=== PATIENT | female | born 1990 | race Caucasian/White ===

== ENCOUNTER → 2017-12-20 15:52 | Outpatient (CLI) | payer BC, SELFPAY ==
[2017-12-20 15:55] LABS: Microscopic, Urine URINE MICROSCOPIC (MICROSCOPIC)
[2017-12-20 16:20] LABS: Appearance,Urine SL CLOUDY (Clear); Bilirubin,Urine Negative (Negative); Blood, Urine Negative (Negative); Color,Urine YELLOW (Yellow); Glucose,Urine (UA) Negative (Negative); Ketones,Urine Negative (Negative); Leukocyte Esterase,Urine Negative (Negative); Nitrate,Urine Negative (Negative); Protein,Urine Negative (Negative); Urine Pregnancy, HCG Qual. Negative (Negative); Urobilinogen,Urine 0.2 EU/dl (0.2)
[2017-12-20 16:23] LABS: Basophils # 0.1 K/mm3 (0-0.2); Basophils % 0.5 % (0.1-2.0); Eosinophils # 0.4 K/mm3 (0.0-0.4); Eosinophils % 3.8 % (0.1-12.0); Hematocrit 46.6 % (37.0-47.0); Hemoglobin 15.6 g/dL (12.2-16.2); Lymphocytes # 2.8 K/mm3 (0.7-4.5); Lymphocytes % 28.5 K/mm3 (10-50); Mean Corpuscular HGB Conc 33.5 g/dL (31.8-35.4); Mean Corpuscular Hemoglobin 30.9 pg (27.0-31.2); Mean Corpuscular Volume 92.2 fl (81-99); Mean Platelet Volume 8.9 fl (7.4-10.4); Monocytes # 0.4 K/mm3 (0.1-1.0); Monocytes % 3.8 % (1.7-9.3); Neutrophils # 6.3 K/mm3 (1.8-7.8); Neutrophils % 63.4 % (37.0-80.0); Platelet Count 292 K/mm3 (142-424); Red Blood Count 5.06 M/mm3 (4.20-5.40); Red Cell Distribution Width 12.8 % (11.5-17.5); White Blood Count 9.9 K/mm3 (4.8-10.8)
[2017-12-20 16:48] LABS: Amorphous Sediment,Urine 3+ /lpf; Bacteria,Urine 1+ /lpf; Hyaline Casts,Urine Occasional #/lpf (0); WBC,Urine Occasional #/hpf (0-3)
[2017-12-20 17:54] LABS: Alanine Aminotransferase 20 U/L (12-78); Albumin/Globulin Ratio 1.2 (1.1-1.8); Alkaline Phosphatase 65 U/L (46-116); Aspartate Amino Transferase 15 U/L (15-37); Bilirubin,Total 0.2 mg/dL (0.2-1.0); Blood Urea Nitrogen 11 mg/dL (7-18); Calcium 9.5 mg/dL (8.5-10.1); Carbon Dioxide 30 mmol/L (21.0-32.0); Chloride 104 mmol/L (98-107); Creatinine,Serum 0.64 mg/dL (0.55-1.02); Estimated Glomerular Filt Rate 111 ml/min (>60); GFR (African American) 135 ML/MIN (>60); Globulin 3.3 gm/dl (1.3-3.2); Glucose 83 mg/dL (74-106); Sodium 140 mmol/L (136-145); Total Protein,Serum 7.3 gm/dL (6.4-8.2)
== END ==
PROVIDERS: Visit Provider Obstetrics & Gynecology
DX: Z01.818 Encounter for other preprocedural examination (principal); Z30.2 Encounter for sterilization
CPT/HCPCS: 36415; 80053; 81001; 81025; 85025

== ENCOUNTER 2017-12-26 06:13 | Day surgery (SDC) | payer BC, SELFPAY ==
[2017-12-23 13:03] VITALS: BMI 31.8
[2017-12-26] VITALS (13 sets, daily range): BP systolic 86–113; BP diastolic 52–82; PULSE 51–77; RESP 16–22; TEMP 36.2–43; O2SAT 97–99
--- NOTE | 2017-12-26 06:40 | P.PN_ITS ---
[facility] Anesthesia Checklist - Patient Identification Patient Identification: Arm Band - Structural Data Admitted From: Home Consent for Planned Operative Procedure(s) Verified: Yes Verified Documents: Surgical Consent, History and Physical - NPO Status Verified Time NPO: 00:00 - Additional verifications Patient : No Anesthesia Reactions: No - Airway Assessment C-Spine Mobility Assessed: Yes TMJ Mobility Assessed: Yes Dentition: Good Dentition - Neurological Assessment Level of Consciousness: Awake Hx Seizures: No Numbness or tingling in extremities: No - Anesthesia Plan Anesthesia Risk discussed: Yes Anesthesia Plan: Verified ASA Class: II Anesthesia Type: General [facility] Anesthesia HX I have reviewed the patient's past medical history: Yes Medical History: Reports:: Anxiety, Asthma, Gastroesophageal Reflux Disease(GERD ) Denies:: Cancer, Diabetes Mellitus Type 1, MRSA Comment: Positive smoker Other Surgeries: Yes: No Previous Surgery Amputation: No Fractures: No *Family Hx:: Cancer, Hypertension, Diabetes, Stroke
--- NOTE | 2017-12-26 07:48 | P.OP_ITS ---
Date of procedure: 12/26/17 Pre-op Diagnosis:: Desire for sterilization Post-op Diagnosis:: Desire for sterilization Procedure performed:: Laparoscopic bilateral tubal fulguration Surgeon:: Robert Bolton MD REHABILITATION SPECIALIST:: Jorge Alberto Gibson Anesthesia: JESSICA Estimated blood loss (mL): 10 Operative findings:: Normal pelvis Operative note:: After the patient was prepped and draped in usual fashion and general anesthesia was administered, examined normal-sized uterus, with no adnexal masses. A weighted speculum was placed within the posterior fourchette of the vagina, and the anterior lip of the cervix was grasped with a single-tooth tenaculum. The uterus was sounded in a retroverted direction to centimeters, and easily dilated to #20 Hegar dilators. A HUMI uterine elevator was inserted in the cervix, and the bulb inflated for easy uterine manipulation during the laparoscopy. After appropriate regloving, the skin on either side of the umbilicus was tented up with towel clips. A small incision was made in the base of the umbilicus with a knife, and a Veress needle was inserted into the abdominal cavity. After demonstration of negative pressure, an adequate pneumoperitoneum was created with carbon dioxide gas. The Veress needle was then replaced with a trocar and cannula, and the trocar placed with the laparoscope. The uterus was of normal size and configuration. Each tube was followed out to its fimbriated end, which appeared free. Each ovary also appeared normal. The upper abdomen was explored. The liver and spleen edges and gallbladder were visualized and felt to be normal. The appendix was not visualized. Returning to the pelvis, first the left tube and then the right was grasped in its midsection and fulgurated until the tissue blanched. Each tube was then fulgurated twice more medially. There was no undue bleeding. There was no pathology noted. The pneumoperitoneum was reduced, and the instruments were removed under direct visualization. The skin incision was infused with a dilute solution of Marcaine, as a local anesthetic, and closed with a subcuticular suture of 3-0 Vicryl. The wound was appropriately dressed. The HUMI was deflated and removed. The sponge and needle counts correct. The estimated blood loss was less than 10 cc. The patient tolerated the procedure well, and was taken to PACU in excellent condition. She will be discharged today, if her vital signs are stable. Condition: stable Disposition: same day Specimens:: None Complications:: None
--- NOTE | 2017-12-26 07:57 | P.PN_ITS ---
[facility] Anesthesia Record Part I Intake, IV Amount: 700 Estimated blood loss (mL): 10 Urine output (mL): 50 Blood Products used (#): none Blood Pressure: 110/82 SaO2: 97 Pulse Rate: 66 Respiratory Rate: 20 Temperature: 98.2 F Patient is:: Drowsy, Stable Stable to PACU at:: 07:56
--- NOTE | 2017-12-26 07:57 | HMH.ANESII ---
[facility] Anesthesia Record Part II Discharge Time: 08:26 Destination: Surgical Day Care (OP Surgery) PACU nurse assessment reviewed?: Yes Patient Condition:: Good Anesthesia Complications:: None
[2017-12-26 09:18] LABS: Hematocrit 40.9 % (37.0-47.0); Hemoglobin 13.4 g/dL (12.2-16.2)
== END 2017-12-26 09:50 | disposition home or self-care (01) ==
PROVIDERS: Family Provider Pediatrics; PCP Pediatrics; Visit Provider Obstetrics & Gynecology
PROC: 0UL74ZZ Occlusion of Bilateral Fallopian Tubes, Percutaneous Endoscopic Approach (ICD-10-PCS; CPT 58670; principal; 2017-12-26 07:30)
DX: Z30.2 Encounter for sterilization (principal)
CPT/HCPCS: 58670; 36415; 85014; 85018; 96372; 96374; J0131; J2405

== ENCOUNTER → 2018-07-10 11:15 | Outpatient (CLI) | payer BC, SELFPAY ==
[2018-07-10 14:12] LABS: Anion Gap 9.6 mEq/L (5-15); Blood Urea Nitrogen 10 mg/dL (7-18); Carbon Dioxide 30 mmol/L (21.0-32.0); Chloride 107 mmol/L (98-107); Creatinine,Serum 0.68 mg/dL (0.55-1.02); Estimated Glomerular Filt Rate 103 ml/min (>60); GFR (African American) 125 ML/MIN (>60); Glucose 64 mg/dL (74-106); Potassium 4.6 mmoL/L (3.5-5.1); Sodium 142 mmol/L (136-145)
== END ==
PROVIDERS: PCP Pediatrics; Visit Provider Specialist
DX: G93.0 Cerebral cysts (principal); R51 Headache; R93.8 Abnormal findings on diagnostic imaging of other specified body structures
CPT/HCPCS: 36415; 80048

== ENCOUNTER → 2018-07-13 08:32 | Outpatient (CLI) | payer BC, SELFPAY ==
--- NOTE | 2018-07-13 08:34 | MR_ITS ---
MR head/brain wo/w con HISTORY: Severe headache with dizziness and nausea with abnormal head CT, vision loss, headaches and syncope ITS.REASON: abnormal ct scan headache ORDERING PHYSICIAN: Isatu Briscoe MD PATIENT AGE: 28 years Comparison: 05/06/2019 TECHNIQUE: Standard multiplanar multiecho sequences are performed without and with gadolinium enhancement. FINDINGS: There is an extra-axial collection in the right posterior cranial fossa which is situated anterior to the right cerebellar hemisphere and lateral to the alba as noted on the CT scan. This measures 1.5 x 2 cm AP and transverse and 2.4 cm cephalad to caudad. This demonstrates CSF signal intensity on all imaging sequences and does not demonstrate contrast enhancement or restricted diffusion. This is consistent with an arachnoid cyst. This is causing some mild compression upon the adjacent cerebellum and cerebellar acute uncal. There is very mild midline shift to the left approximately 4 mm. The mid aspect of the fourth ventricle appears to be to the left of midline by approximately 4 mm. There is no surrounding edema of the adjacent structures. The extracanalicular portion of the right nerve VII and VIII is somewhat bowed anteriorly by the cyst. The cyst epicenter is just posterior to the CP angle. This lesion does not show any enhancement. No acute infarction, hydrocephalus, or intracranial hemorrhage is evident. No abnormal enhancement is apparent. There is normal watson-white matter differentiation. The pituitary and optic chiasm are unremarkable. No large aneurysms evident. IMPRESSION: 1. Right posterior fossa/cerebellopontine angle arachnoid cyst as described above 2. Otherwise negative MRI of the brain without and with contrast
== END ==
PROVIDERS: Family Provider Pediatrics; PCP Pediatrics; Visit Provider Specialist
DX: G93.0 Cerebral cysts (principal); R51 Headache; R93.8 Abnormal findings on diagnostic imaging of other specified body structures
CPT/HCPCS: 70553; A9576

== ENCOUNTER 2020-05-27 22:29 | Emergency (ER) | payer BC, SELFPAY ==
[2020-05-27 22:30] VITALS: BP 116/87; BP 119/81; PULSE 82; PULSE 88; RESP 15; RESP 16; TEMP 36.7; O2SAT 99; BMI 36.8
--- NOTE | 2020-05-27 22:39 | XR_ITS ---
PROCEDURE: XR CHEST 2V CLINICAL HISTORY: chest pain Chest pain and smoker COMPARISON: CR CXR CHEST(2 VIEWS-NOT PORTABLE) from 04/21/2016 CR CXR CHEST(2 VIEWS-NOT PORTABLE) from 08/23/2017 CR CXR2V XR chest 2V from 04/27/2018 FINDINGS: The cardiomediastinal silhouette and pulmonary vascularity are within normal limits. The lungs are clear without infiltrates, suspicious nodules, or pleural effusions. No acute bony abnormalities. IMPRESSION: No acute findings. Dictated by: Jose Scherer MD 05/28/2020 06:41 Jose Scherer MD in [place] 05/28/2020 06:41
--- NOTE | 2020-05-27 22:39 | ECG_ITS ---
APPROVED REPORT Exam: Resting ECG HR:80 bpm ECG Measurements Heart Rate 80 AXES [place] 148 P 63 QRSd 112 QRS 60 QT 374 T 40 QTc 431 <Conclusion> Normal sinus rhythm Incomplete right bundle branch block Borderline ECG Electronically signed by : Flaco Riley, 05/28/2020 11:59:43
[2020-05-27 22:47] LABS: Basophils # 0.1 K/mm3 (0-0.2); Basophils % 0.9 % (0.1-2.0); Eosinophils # 0.5 K/mm3 (0.0-0.4); Eosinophils % 4.4 % (0.1-12.0); Hematocrit 44.5 % (37.0-47.0); Hemoglobin 15.1 g/dL (12.2-16.2); Lymphocytes # 3.5 K/mm3 (0.7-4.5); Lymphocytes % 34.7 % (10-50); Mean Corpuscular HGB Conc 33.9 g/dL (31.8-35.4); Mean Corpuscular Hemoglobin 31.8 pg (27.0-31.2); Mean Corpuscular Volume 93.8 fl (81-99); Mean Platelet Volume 8.9 fl (7.4-10.4); Monocytes # 0.4 K/mm3 (0.1-1.0); Monocytes % 3.7 % (1.7-9.3); Neutrophils # 5.8 K/mm3 (1.8-7.8); Neutrophils % 56.4 % (37.0-80.0); Platelet Count 238 K/mm3 (142-424); Red Blood Count 4.75 M/mm3 (4.20-5.40); Red Cell Distribution Width 13.4 % (11.5-17.5); White Blood Count 10.2 K/mm3 (4.8-10.8)
[2020-05-27 22:58] LABS: Chloride 107 mmol/L (98-107)
[2020-05-27 22:59] LABS: Potassium 3.9 mmoL/L (3.5-5.1); Sodium 139 mmol/L (136-145)
[2020-05-27 23:00] VITALS: BP 125/85; PULSE 84; RESP 17; O2SAT 98
[2020-05-27 23:02] LABS: Anion Gap 10.9 mEq/L (5-15); Blood Urea Nitrogen 15 mg/dl (7-17); Calcium 9.4 mg/dl (8.4-10.2); Carbon Dioxide 25 mmol/L (22.0-30.0); Creatinine Clearance Estimated 198 mL/min (50-200); Estimated Glomerular Filt Rate 98 ml/min (>60); GFR (African American) 119 ML/MIN (>60); Glucose 108 mg/dl (74-100)
[2020-05-27 23:16] LABS: Troponin I < 0.01 ng/ml (0.00-0.034)
[2020-05-27 23:28] LABS: Microscopic, Urine URINE MICROSCOPIC (MICROSCOPIC)
[2020-05-27 23:30] VITALS: BP 121/79; PULSE 84; RESP 17; O2SAT 99
--- NOTE | 2020-05-27 23:30 | HMH.EDCP ---
ED Disposition Clinical Impression: Anxiety attack Chest pain Qualifiers: Chest pain type: other chest pain Qualified Code(s): R07.89 - Other chest pain Disposition: Home, Self-Care Condition on Discharge: Good Instructions: DI for Atypical Chest Pain Additional Instructions: Follow up with PCP. Advised to return to ED if your symptoms worsen or you start having difficulty breathing. Referrals: Navneet Cuenca [Primary Care Provider] - Forms: Work/School Release - Critical Care Critical Care Time: No Attestation: On 05/27/20, the high probability of a clinically significant, sudden or life threatening deterioration of the following system(s) required my full and direct attention, intervention and personal management. The time I documented below is in addition to time spent performing reported procedures but includes the following listed in this critical care notation. Medical Decision Making - Medical Records Medical records reviewed: Yes: I reviewed the patient's medical records. - Suraj Inquiry Pt receiving controlled substance: No Vital Signs: 05/27/20 22:30 05/27/20 23:00 05/27/20 23:30 Temperature 98.1 F Temperature Source Oral Pulse Rate Pulse Rate [Right] 88 84 84 Respiratory Rate 15 17 17 Blood Pressure Blood Pressure [Right Arm] 119/81 125/85 121/79 Blood Pressure Mean [Right Arm] 93 98 93 Blood Pressure Source [Right Arm] Automatic Cuff Automatic Cuff Automatic Cuff Blood Pressure Position [Right Arm] Supine Supine 02 Sat by Pulse Oximetry 99 98 99 Oxygen Delivery Method Room Air Room Air Room Air 05/27/20 23:55 Temperature 98.1 F Temperature Source Pulse Rate 82 Pulse Rate [Right] Respiratory Rate 14 Blood Pressure 124/78 Blood Pressure [Right Arm] Blood Pressure Mean [Right Arm] Blood Pressure Source [Right Arm] Blood Pressure Position [Right Arm] 02 Sat by Pulse Oximetry Oxygen Delivery Method Room Air - Lab Data Lab Results 05/27/20 22:30: Urine Color Yellow, Urine Appearance Clear, Urine pH 5.5, Ur Specific Dunn >= 1.030, Urine Protein Negative, Urine Glucose (UA) Negative, Urine Ketones Negative, Urine Blood Trace-l, Urine Nitrate Negative, Urine Bilirubin Negative, Urine Urobilinogen 0.2, Ur Leukocyte Esterase Negative, Urine WBC 3-5, Ur Squamous Epith Cells 5-10, Urine Bacteria 2+ 05/27/20 22:30: Urine HCG, Qual Negative 05/27/20 22:35: WBC 10.2, RBC 4.75, Hgb 15.1, Hct 44.5, MCV 93.8, MCH 31.8 H, MCHC 33.9, RDW 13.4, Plt Count 238, MPV 8.9, Neut % (Auto) 56.4, Lymph % (Auto) 34.7, Lynn % (Auto) 3.7, Eos % (Auto) 4.4, Baso % (Auto) 0.9, Neut # (Auto) 5.8, Lymph # (Auto) 3.5, Lynn # (Auto) 0.4, Eos # (Auto) 0.5 H, Baso # (Auto) 0.1 05/27/20 22:35: Sodium 139, Potassium 3.9, Chloride 107, Carbon Dioxide 25, Anion Gap 10.9, BUN 15, Creatinine 0.70, Estimated Creat Clear 198, Estimated GFR 98, Est GFR ( Amer) 119, Glucose 108 H, Calcium 9.4, Troponin I < 0.01 Result diagrams: 05/27/20 22:35 05/27/20 22:35 Orders (Tests/Meds): ED MEDICATIONS Discontinued Medications Generic Name Dose Route Start Last Admin Trade Name Freq PRN Reason Stop Dose Admin Aspirin 324 mg 05/27/20 22:39 05/27/20 22:45 Aspirin 81mg Chewable Tablet PO 05/27/20 22:40 324 mg ONCE ONE Administration ORDERS Category Date Time Status XR chest 2V Stat Exams 05/27/20 22:39 Taken Urine Culture Stat Micro 05/27/20 22:30 Received - CHAS Score for Non-Stemi Age of Patient: 30-39 years old Heart Rate: 70-89 bpm Systolic Blood Pressure: 100-119 mmHg Serum Creatinine: 0.40-0.79 mg/dl CHF Killip Class: I-No CHF Other Risk Factors: None Non-Stemi Risk Score: 64 Risk Stratification: 1-108 = Low Risk Medical Decision Narrative: 30-year-old female comes into the emergency department for evaluation of chest pain/tightness. Symptoms started approximately 4 hours prior to arrival. Hemodynamically stable nontoxic in appearance upon arrival. Differenti
[2020-05-27 23:40] LABS: Urine Pregnancy, HCG Qual. Negative (Negative)
[2020-05-27 23:43] LABS: Appearance,Urine CLEAR (Clear); Bilirubin,Urine Negative (Negative); Blood, Urine TRACE-L (Negative); Color,Urine YELLOW (Yellow); Glucose,Urine (UA) Negative (Negative); Ketones,Urine Negative (Negative); Leukocyte Esterase,Urine Negative (Negative); Nitrate,Urine Negative (Negative); PH,Urine 5.5 (5.0-8.5); Protein,Urine Negative (Negative); Specific Gravity, Urine >= 1.030 (1.005-1.030); Urobilinogen,Urine 0.2 EU/dl (0.2)
[2020-05-27 23:52] LABS: Bacteria,Urine 2+ /lpf
[2020-05-27 23:55] VITALS: BP 124/78; PULSE 82; RESP 14; TEMP 36.7; O2SAT 99
== END 2020-05-27 23:56 | disposition home or self-care (01) ==
PROVIDERS: Emergency Provider Emergency Medicine; PCP Pediatrics
DX: F41.0 Panic disorder [episodic paroxysmal anxiety] (principal); R07.89 Other chest pain; K21.9 Gastro-esophageal reflux disease without esophagitis; G43.709 Chronic migraine without aura, not intractable, without status migrainosus; J45.909 Unspecified asthma, uncomplicated; Z88.5 Allergy status to narcotic agent; F17.210 Nicotine dependence, cigarettes, uncomplicated
CPT/HCPCS: 71046; 80048; 81001; 81025; 84484; 85025; 87086; 93005; 99283

== ENCOUNTER → 2020-10-24 14:35 | Outpatient (CLI) | payer BC, SELFPAY ==
--- NOTE | 2020-10-24 14:35 | MR_ITS ---
PROCEDURE: MR HEAD/BRAIN WO/W CON CLINICAL INDICATION: eval arachnoid cyst headaches, dizziness, black out spells, eval arachnoid cyst. COMPARISON: MR BRAINWW MR head/brain wo/w con from 07/13/2018 TECHNIQUE: Routine multiplanar multi echo sequences are performed without gadolinium enhancement. FINDINGS: No evidence of acute infarction. No hydrocephalus. Prominent extra-axial CSF signal intensity is present anterior to the right cerebellar hemisphere and in the right CP angle. This measures 4.4 by 2 cm and is similar to the previous exam of 07/13/2018. This lesion does not demonstrate contrast enhancement and is consistent with an arachnoid cyst of the right posterior fossa and CP angle. As mentioned previously this is causing some mass effect upon the adjacent cerebellum and cerebellopontine angle with minimal midline shift of the cerebellum to the left not significantly changed. No abnormal white matter signal intensity. There is a partial empty sella. The optic chiasm, corpus callosum, hippocampal gyri, and basal ganglia have an unremarkable appearance. There is a 2.7 cm retention cyst in the floor the left maxillary sinus. IMPRESSION: 1. Overall no change in the right posterior fossa arachnoid cyst. There is mild mass effect upon the adjacent cerebellum and alba with some bowing of the 7th and 8th nerve complex anteriorly. This is not significantly changed. There is minimal midline shift to the left of the 4th ventricle by 3-4 mm. This is unchanged. 2. No acute finding. Dictated by: Jose Scherer MD 10/25/2020 07:29 Jose Scherer MD in [place] 10/25/2020 07:29
== END ==
PROVIDERS: PCP Pediatrics; Visit Provider Nurse Practitioner Family
DX: G93.0 Cerebral cysts (principal); G43.019 Migraine without aura, intractable, without status migrainosus
CPT/HCPCS: 70553; A9576

== ENCOUNTER 2021-12-06 14:52 | Emergency (ER) | payer BC, SELFPAY ==
--- NOTE | 2021-12-06 15:27 | XR_ITS ---
PROCEDURE INFORMATION: Exam: XR Left Ankle Exam date and time: 12/06/2021 3:27 PM Age: 31 years old Clinical indication: Injury or trauma; Fall; Blunt trauma and swelling (edema); Ankle; Left; Injury date: 12/05/21 TECHNIQUE: Imaging protocol: XR Left ankle. Views: 3 or more views. COMPARISON: No relevant prior studies available. FINDINGS: Bones/joints: There is widening of the space between the distal tibia and fibula, with resultant decrease in the tibiofibular overlap. Mild diffuse soft tissue swelling is demonstrated at the level of the ankle joint. No fracture is demonstrated. Soft tissues: Soft tissue swelling. IMPRESSION: 1. Findings suspicious for possible syndesmotic injury. 2. Recommendations: Follow-up with magnetic resonance imaging for further evaluation of possible syndesmotic injury.
[2021-12-06 15:28] VITALS: BP 106/66; PULSE 75; RESP 18; TEMP 36.9; O2SAT 98; BMI 42.3
--- NOTE | 2021-12-06 16:35 | HMH.EDUTC ---
[facility] [place] Clinical Impression: Ankle sprain Qualifiers: Encounter type: initial encounter Involved ligament of ankle: other ligament Laterality: left Qualified Code(s): S93.492A - Sprain of other ligament of left ankle, initial encounter Disposition: Home, Self-Care Condition on Discharge: Good Instructions: How to Use Crutches, How To Perform RICE (Rest, Ice, Compress, Elevate), How to Use a Walking Boot Additional Instructions: *RICE, Rest the extremity, Ice 15-20 minutes 3-4 times daily, Compress- wear the william wrap as discussed as much as possible to help reduce swelling and pain, Elevate the extremity when at rest *Walking boot is for support and help control swelling, Be sure that is not to tight but not to loose either use crutches to ambulate and move around *Elevate when resting *Ibuprofen as directed on package every 6-8 hours as needed for pain an inflammation. If need something more can take Tylenol in between doses of Ibuprofen to help Immediately follow up with your family doctor for new or worsening of symptoms, or no noticeable improvement over the next 3-5 days Call and follow up with Podiatry or Orthopedics for further evaluation and treatment Return if needed Follow up with your Family Doctor Straight to ER if any life threatening symptoms Referrals: Navneet Cuecna [Primary Care Provider] - As needed Mayra Walters DPM [Staff Physician] - Katina Castellon APRN [Nurse Practitioner] - Forms: Work/School Release Time of Disposition: 16:42 Medical Decision Making - Suraj Inquiry Pt receiving controlled substance: No Suraj was queried for this patient: No Vital Signs: 12/06/21 15:28 Temperature 98.4 F Temperature Source Oral Pulse Rate [Left] 75 Respiratory Rate 18 Blood Pressure [Right Arm] 106/66 L Blood Pressure Mean [Right Arm] 79 02 Sat by Pulse Oximetry 98 Orders (Tests/Meds): ORDERS Category Date Time Status Ankle XR - Left minimum 3 Views [XR ankle LT min 3V] Exams 12/06/21 15:27 Taken Stat - Radiology Data #1 Image(s): Ankle Image Reviewed: Yes I have reviewed radiologist's interpretation IMPRESSION: 1. Findings suspicious for possible syndesmotic injury. 2. Recommendations: Follow-up with magnetic resonance imaging for further evaluation of possible syndesmotic injury. [facility] [place] - General Stated complaint: AO 12/05 lt ankle pain Time Seen by Provider: 12/06/21 16:35 Mode of Arrival: Ambulatory Source of Information: Patient Limitations: No Limitations Description of Symptoms (Recalled from Triage Doc. by RN): pt states she fell on ice last night and injured her L ankle. HEENT Symptoms (Recalled from RN notes): No Resp Symptoms (Recalled from RN notes): No Skin Symptoms (Recalled from RN notes): No MS Symptoms (Recalled from RN notes): Yes Functional Status (Recalled from RN notes): wnl - History of Present Illness Provider Complaint: Patient states that she slipped and fell last night on ice and twisted her left ankle State that ever since she has been having pain when she moves it or tries to walk on it State that today it was still hurting and she was unable to go to work so she came in to get it checked out - Related Data Home Medications Medication Instructions Recorded Confirmed albuterol sulfate 90 mcg/actuation INHALATION 06/12/20 06/04/21 aerosol inhaler metronidazole 500 mg tablet 500 mg PO BID 06/04/21 06/04/21 Allergies Allergy/AdvReac Type Severity Reaction Status Date / Time acetaminophen [From Lortab] AdvReac Unknown Rash Verified 06/04/21 13:00 hydrocodone [From Lortab] AdvReac Unknown Rash Verified 06/04/21 13:00 - Worker's Comp Is this a Worker's Comp case?: No [facility] History - Hepatitis A Screen Drug use history?: No High risk sexual behaviors?: No History of sexually transmitted infection?: No Currently employed?: No Childcare worker?: No Do you have indoor plumbing?: Yes Do you have electricity?: Yes
[2021-12-06 16:58] VITALS: BP 106/66; PULSE 75; RESP 18; TEMP 36.9
== END 2021-12-06 16:59 | disposition home or self-care (01) ==
PROVIDERS: Emergency Provider Nurse Practitioner; PCP Pediatrics
DX: S93.492A Sprain of other ligament of left ankle, initial encounter (principal); W00.0XXA Fall on same level due to ice and snow, initial encounter; Y92.89 Other specified places as the place of occurrence of the external cause; F17.210 Nicotine dependence, cigarettes, uncomplicated; K21.9 Gastro-esophageal reflux disease without esophagitis; F41.9 Anxiety disorder, unspecified
CPT/HCPCS: 29515; 73610; 99212; G0463

== ENCOUNTER 2023-02-12 09:15 | Emergency (ER) | payer BC, SELFPAY ==
[2023-02-12 09:17] VITALS: BP 125/81; PULSE 99; RESP 18; TEMP 36.9; O2SAT 97; BMI 33.5
--- NOTE | 2023-02-12 09:24 | PC.NURSE ---
DR EDDY AT BEDSIDE
--- NOTE | 2023-02-12 09:32 | HMH.EDGENADL ---
Discharge Plan Disposition Patient Disposition: Home, Self-Care Condition: Good Chief Complaint: Ear Prescriptions Prescriptions: No Action metronidazole [Flagyl] 500 mg tablet 500 mg PO BID albuterol sulfate 90 mcg/actuation HFA aerosol inhaler INHALATION Referrals Follow up/Referrals: Navneet Cuenca [Primary Care Provider] - See instructions Clinical Impressions Clinical Impression: Abrasion of ear canal, Overuse injury Discharge ED Provider: Damian Hutchinson General Adult HPI General Chief complaint: Ear Stated complaint: Knot inside L ear, R middle finger, no accident Time Seen by Provider: 02/12/23 09:20 Mode of Arrival: Ambulatory Limitations: No Limitations Description of Symptoms (Recalled from ER Triage Doc. by RN): PT REPORTS PAIN TO LEFT EAR KNOT INSIDE X 1 MONTH. C/O PAIN TO MIDDLE KNUCLE ON RIGHT HAND X 2 WEEKS. NO INJURY History of Present Illness HPI narrative: 32yo F presents to the ER for pain inside her left ear for 1 year. Also complains of pain in her right middle finger x1 to 2 weeks. Denies any specific injury. 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 States her finger hurts worse when using a hammer. Denies any specific injury or trauma. [id number] Related Data Home Medications Medication Instructions Recorded Confirmed albuterol sulfate 90 mcg/actuation inhalation 06/12/20 06/04/21 aerosol inhaler metronidazole 500 mg tablet 500 mg PO BID 06/04/21 06/04/21 (Flagyl) Allergies Allergy/AdvReac Type Severity Reaction Status Date / Time acetaminophen [From Lortab] AdvReac Unknown Rash Verified 06/04/21 13:00 hydrocodone [From Lortab] AdvReac Unknown Rash Verified 06/04/21 13:00 [facility] Disclaimer: The information contained in this section may have been updated after the patient was seen, as this information can be updated by other users. Social History Smoking Status: Current every day smoker tobacco type: cigarettes packs per day: 1 alcohol intake: never substance use type: denies use current occupational status: employed Travel in the last 8 weeks: None household members: children housing: house current occupation: [employer] ROS Obtained: Yes Systems reviewed as appropriate & no additional complaints except as documented Physical Exam General General appearance: alert and in no apparent distress Head Head exam: atraumatic Eye Eye exam: Present normal appearance ENT ENT exam: Present normal exam and other (L ear: No otitis externa, normal EAC, normal TM. Scab to ear canal meatus without surrounding erythema, drainage) Expanded ENT Exam External ear exam: Present normal external inspection Neck Neck exam: Present normal inspection and full ROM Respiratory Respiratory exam: Absent respiratory distress Cardiovascular Cardiovascular exam: Present regular rate Neurological Exam Neurological exam: Present alert, oriented X3 and CN II-XII intact Psychiatric Psychiatric exam: Present normal affect Skin Skin exam: Present warm and dry Medical Decision Making Medical Records Medical records reviewed: Yes I reviewed the patient's medical records. Suraj Inquiry Pt receiving controlled substance: No Vital Signs: 02/12/23 09:17 Temperature 98.4 F Temperature Source Oral Pulse Rate [Radial] 99 H Respiratory Rate 18 Blood Pressure [Left Arm] 125/81 Blood Pressure Mean [Left Arm] 95 Blood Pressure Source [Left Arm] Automatic Cuff Blood Pressure Position [Left Arm] Sitting 02 Sat by Pulse Oximetry 97 Oxygen Delivery Method Room Air Medical Decision Narrative: 32yo F evaluated for 1 year of left heel pain and 1 to 2 weeks of right middle finger pain. No trauma. Physical exam unremarkable except for a small scab the patient has been picking at her ear. Believe the patient would benefit from not wearing earplugs and from crosstraining. Discus
[2023-02-12 09:40] VITALS: BP 122/69; PULSE 92; RESP 17; TEMP 36.9; O2SAT 98
== END 2023-02-12 09:42 | disposition home or self-care (01) ==
PROVIDERS: Emergency Provider Family Medicine; PCP Pediatrics
DX: S00.412A Abrasion of left ear, initial encounter (principal); M79.641 Pain in right hand; X58.XXXA Exposure to other specified factors, initial encounter; F17.210 Nicotine dependence, cigarettes, uncomplicated
CPT/HCPCS: 99282; 99283

== ENCOUNTER 2023-09-15 09:23 | Emergency (ER) | payer OTHER, SELFPAY ==
--- NOTE | 2023-09-15 10:06 | EXP.UTC ---
Discharge Plan Disposition Patient Disposition: Home, Self-Care Condition: Good Prescriptions Prescriptions: New ibuprofen [IBU] 800 mg tablet 800 mg PO Q8HP PRN (Reason: Moderate Pain) Qty: 30 0RF No Action metronidazole [Flagyl] 500 mg tablet 500 mg PO BID albuterol sulfate 90 mcg/actuation HFA aerosol inhaler INHALATION Referrals Follow up/Referrals: Navneet Cuenca [Primary Care Provider] - See instructions Iron Becerra DO [Staff Physician] - See instructions Activity Restrictions/Add. Instructions Additional Instructions/Restrictions: Rest the extremity, apply ice for 15 minutes as tolerated three or four times per day, Wear the william wrap for compression, Elevate the extremity as tolerated while you are resting. Wear the sling to rest your elbow for the next few days. Take ibuprofen for pain. I sent in a prescription to your pharmacy. Follow up with Dr. Becerra (orthopedics). I put in a referral but you need to call his office and schedule an appointment. Follow up with your regular doctor. 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 Since then she has had left elbow pain that is worse when she bends or moves her elbow. She denies any other injury. She denies any back or neck pain. Related Data Home Medications Medication Instructions Recorded Confirmed albuterol sulfate 90 mcg/actuation inhalation 06/12/20 06/04/21 aerosol inhaler metronidazole 500 mg tablet 500 mg PO BID 06/04/21 06/04/21 (Flagyl) Previous Rx's Medication Instructions Recorded ibuprofen 800 mg tablet (IBU) 800 mg PO Q8HP PRN Moderate Pain 09/15/23 #30 tabs Allergies Allergy/AdvReac Type Severity Reaction Status Date / Time acetaminophen [From Lortab] AdvReac Unknown Rash Verified 06/04/21 13:00 hydrocodone [From Lortab] AdvReac Unknown Rash Verified 06/04/21 13:00 [facility] Disclaimer: The information contained in this section may have been updated after the patient was seen, as this information can be updated by other users. Social History Smoking Status: Current every day smoker tobacco type: cigarettes packs per day: 1 alcohol intake: never substance use type: denies use current occupational status: employed Travel in the last 8 weeks: None household members: children housing: house current occupation: [employer] Obtained: Yes All systems reviewed & no additional complaints except as documented Constitutional Constitutional: Denies chills and Denies fever(s) Eyes Eyes: Denies eye discharge ENT Ears, Nose, Mouth, and Throat: Denies dizziness, Denies otalgia and Denies sore throat Cardiovascular Cardiovascular: Denies chest pain Respiratory Respiratory: Denies shortness of breath, Denies chest congestion, Denies cough, Denies stridor and Denies wheezing Gastrointestinal Gastrointestingal: Denies nausea or vomiting Musculoskeletal Musculoskeletal: Reports as per HPI Integumentary/Breasts Skin/Breast: Denies rash Neurologic Neurologic: Denies dizziness and Denies paresthesias Allergic/Immunologic Allergic/Immunologic: Denies wheezing Physical Exam General General appearance: alert and in no apparent distress Head Head exam: atraumatic, normocephalic and normal inspection Eye Eye exam: Present normal appearance, PERRL and EOMI ENT ENT exam: Present normal exam, normal oropharynx, mucous me
--- NOTE | 2023-09-15 10:08 | XR_ITS ---
FINAL REPORT CLINICAL HISTORY: fall, left elbow pain COMPARISON: None FINDINGS: 3 views of the left elbow were obtained. There is no acute fracture or dislocation. The joint spaces are well preserved. There is no acute soft tissue abnormality. IMPRESSION: No acute abnormality identified. Reviewed, Interpreted and Dictated by Jonah Russell MD Transcribed by Angelica Kulkarni Authenticated and [facility]
--- NOTE | 2023-09-15 10:08 | XR_ITS ---
FINAL REPORT CLINICAL HISTORY: fall, left upper arm pain COMPARISON: None FINDINGS: Two views of the left humerus were obtained. There is no acute fracture or dislocation. The joint spaces are well preserved. There is no acute soft tissue abnormality. IMPRESSION: No acute abnormality identified. Reviewed, Interpreted and Dictated by Jonah Russell MD Transcribed by Angelica Kulkarni Authenticated and [facility]
--- NOTE | 2023-09-15 10:08 | XR_ITS ---
FINAL REPORT CLINICAL HISTORY: fall, left forearm pain COMPARISON: None FINDINGS: 2 views of the left forearm were obtained. There is no acute fracture or dislocation. The joints are intact. There are no soft tissue abnormalities. IMPRESSION: No acute process. Reviewed, Interpreted and Dictated by Jonah Russell MD Transcribed by Angelica Kulkarni Authenticated and [facility]
[2023-09-15 10:15] VITALS: BP 130/73; PULSE 83; RESP 20; TEMP 36.7; O2SAT 100; BMI 32.8
[2023-09-15 10:54] VITALS: BP 130/73; PULSE 83; RESP 20; TEMP 36.7; O2SAT 100
== END 2023-09-15 11:54 | disposition home or self-care (01) ==
PROVIDERS: Emergency Provider Nurse Practitioner Family; PCP Pediatrics
DX: M25.522 Pain in left elbow (principal); S50.02XA Contusion of left elbow, initial encounter; F17.210 Nicotine dependence, cigarettes, uncomplicated; W19.XXXA Unspecified fall, initial encounter
CPT/HCPCS: 73060; 73080; 73090; 99212; 99214; G0463

== ENCOUNTER 2023-11-04 07:43 | Emergency (ER) | payer BC, SELFPAY ==
[2023-11-04 07:45] VITALS: BP 128/75; PULSE 100; RESP 18; TEMP 36.8; O2SAT 100; BMI 37.5
--- NOTE | 2023-11-04 07:47 | HMH.EDGENADL ---
Discharge Plan Disposition Patient Disposition: Home, Self-Care Condition: Good Prescriptions Prescriptions: New ciprofloxacin-dexamethasone 0.3-0.1 % drops,suspension 4 drp otic (ear) BID 7 Days Qty: 7.5 0RF No Action metronidazole [Flagyl] 500 mg tablet 500 mg PO BID albuterol sulfate 90 mcg/actuation HFA aerosol inhaler INHALATION ibuprofen [IBU] 800 mg tablet 800 mg PO Q8HP PRN (Reason: Moderate Pain) Qty: 30 0RF Referrals Follow up/Referrals: Provider,Referral, MD [Primary Care Provider] - See instructions Activity Restrictions/Add. Instructions Additional Instructions/Restrictions: You have been evaluated in the ED for your complaints. You may follow-up with your PCP in the next 3 to 5 days. Please return to ED for any new or worsening symptoms. Please use the eardrops that I provided to assist with your symptoms. I do recommend taking Tylenol and ibuprofen to further assist with your pain. Clinical Impressions Clinical Impression: Ear pain, left Stand Alone Forms Stand Alone Forms: Work/School Release Discharge ED Provider: Harrison Espinoza Adult HPI General Chief complaint: Ear Stated complaint: stabbing pain in left ear Time Seen by Provider: 11/04/23 07:46 History of Present Illness HPI narrative: 33-year-old female with past medical history significant for asthma, presents today for evaluation concerning left ear pain which she states has been intermittent over the past 3 months. 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 She states that when she places her earplug in her left ear she begins to experience pain which subsides after removal of earplug. Denies having any fevers, chills, cough, congestion, ear drainage or any other associated symptoms. Related Data Home Medications Medication Instructions Recorded Confirmed albuterol sulfate 90 mcg/actuation inhalation 06/12/20 06/04/21 aerosol inhaler metronidazole 500 mg tablet 500 mg PO BID 06/04/21 06/04/21 (Flagyl) Previous Rx's Medication Instructions Recorded ibuprofen 800 mg tablet (IBU) 800 mg PO Q8HP PRN Moderate Pain 09/15/23 #30 tabs ciprofloxacin 0.3 %-dexamethasone 4 drp otic (ear) BID 7 days #7.5 mL 11/04/23 0.1 % ear drops,suspension Allergies Allergy/AdvReac Type Severity Reaction Status Date / Time acetaminophen [From Lortab] AdvReac Unknown Rash Verified 06/04/21 13:00 hydrocodone [From Lortab] AdvReac Unknown Rash Verified 06/04/21 13:00 [facility] Disclaimer: The information contained in this section may have been updated after the patient was seen, as this information can be updated by other users. Social History Smoking Status: Current every day smoker tobacco type: cigarettes packs per day: 1 alcohol intake: never substance use type: denies use current occupational status: employed Travel in the last 8 weeks: None household members: children housing: house current occupation: [employer] Obtained: Yes All systems reviewed & no additional complaints except as documented Physical Exam General General appearance: alert and in no apparent distress Head Head exam: atraumatic and normocephalic Eye Eye exam: Present normal appearance, PERRL and EOMI ENT ENT exam: Present normal exam, normal oropharynx and mucous membranes moist Expanded ENT Exam External ear exam: Present other (Both tympanic membranes without erythema, effusions or bulging. External ear canal is without erythema and there are no signs of injury such as abrasions however patient does have pain upon inspection.) Neck Neck exam: Present full ROM; Absent meningismus Respiratory Respiratory exam: Absent respiratory distress, wheezes, stridor or accessory muscle use Cardiovascular Cardiovascular exam: Present normal rhythm Abdominal Exam Abdominal exam: Present soft; Absent distention, tenderness, guarding, rebound or rigidity Neurological Exam Neurological exam: Present alert, oriented X3 and CN II-XII intact; Absent motor sensory deficit Psychiatric Psychiatric exam: Present normal affect and normal mood Skin Skin exam: Present warm and dry Medical Decision Making Medical Records Medical records reviewed: Yes I reviewed the patient's medical records. Suraj Inquiry Pt receiving controlled substance: No Suraj was queried for this patient: No Vital Signs: 11/04/23 07:45 11/04/23 08:00 Temperature 98.2 F Temperature Source Oral Pulse Rate 99 H Pulse Rate [Radial] 100 H Respiratory Rate 18 Blood Pressure 131/79 Blood Pressure [Left Arm] 128/75 Blood Pressure Mean [Left Arm] 92 Blood Pressure Source [Left Arm] Automatic Cuff Blood Pressure Position [Left Arm] Sitting 02 Sat by Pulse Oximetry 100 100 Oxygen Delivery Method Room Air Room Air Medical Decision Narrative: 33-year-old female with past medical history significant for asthma, presents today for evaluation concerning left ear pain which she states has been intermittent over the past 3 months. 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 Denies having any fevers, chills, cough, congestion or any other associated symptoms. On assessment she was hemodynamically stable and in no acute distress. Afebrile. Tympanic membrane's were clear bilaterally. There was no erythema, abrasions or signs of trauma noted along the external ear canals however upon inspection with ear tip patient did appear to be in moderate pain. Differential diagnoses include not limited to otitis externa, otitis media, trauma, among others. Had discussion with patient concerning treatment modalities. She has been taking ibuprofen 600 mg with minimal assistance. At this time we will prescribe patient Ciprodex to further assist with her pain. She could have the beginnings of an otitis externa given that she has significant pain upon inspection of the external ear canal. I discussed ED workup and current plan with patient. Provided with return to ED precautions and instructions concerning PCP follow-up. Patient verbalized understanding and agreement with plan. Subsequently discharged hemodynamically stable and in no acute distress. Critical Care Critical Care Time Critical Care Time: No
--- NOTE | 2023-11-04 07:49 | PC.NURSE ---
Dr. Espinoza at [facility] for pt eval
[2023-11-04 08:00] VITALS: BP 131/79; PULSE 99; O2SAT 100
[2023-11-04 08:13] VITALS: BP 129/82; PULSE 105; RESP 18; TEMP 36.8; O2SAT 100
== END 2023-11-04 08:13 | disposition home or self-care (01) ==
PROVIDERS: Emergency Provider Emergency Medicine; PCP Pediatrics
DX: H92.02 Otalgia, left ear (principal); J45.909 Unspecified asthma, uncomplicated; F17.210 Nicotine dependence, cigarettes, uncomplicated
CPT/HCPCS: 99283

== ENCOUNTER 2024-03-27 16:45 | Emergency (ER) | payer BC, SELFPAY ==
[2024-03-27 16:55] VITALS: BP 105/62; PULSE 78; RESP 21; TEMP 36.7; O2SAT 100; BMI 39.6
--- NOTE | 2024-03-27 17:24 | ED_ITS ---
Discharge Plan Disposition Patient Disposition: Home, Self-Care Condition: Good Prescriptions Prescriptions: New amoxicillin-pot clavulanate 875-125 mg tablet 1 tab PO Q12H 10 Days Qty: 20 0RF loratadine 10 mg tablet 10 mg PO DAILY Qty: 30 1RF Referrals Follow up/Referrals: Navneet Cuenca [Primary Care Provider] - See instructions Activity Restrictions/Add. Instructions Additional Instructions/Restrictions: Take medication as prescribed. Do not drive until all signs and symptoms of dizziness have passed. Increase fluids and rest. Follow up with primary care provider, Clinical Impressions Clinical Impression: Acute suppur left otitis media w/o spontan rupture tympanic membrane, Allergic rhinitis, Dizzinesses Stand Alone Forms Stand Alone Forms: Work/School Release Instructions Patient Instructions: DI for Middle Ear Infection-Adult, DI for Dizziness- Nonvertigo Discharge ED Provider: Jayde Diop [facility] HPI General Stated complaint: dizzy, lightheaded, nausea, left ear pain Mode of Arrival: Ambulatory Source of Information: Patient Limitations: No Limitations Time Seen by Provider: 03/27/24 17:24 Description of Symptoms (Recalled from Triage Doc. by RN): PATIENT C/O LEFT EAR PAIN, DIZZINESS, FEELING LIGHT-HEADED, AND NAUSEA THAT STARTED TODAY HEENT Symptoms (Recalled from RN notes): Yes Resp Symptoms (Recalled from RN notes): No Skin Symptoms (Recalled from RN notes): No MS Symptoms (Recalled from RN notes): No Functional Status (Recalled from RN notes): WNL History of Present Illness Provider Complaint: Pt states that she has left ear pain that has been off and on for some time. She relates that today while at works she has to turn her head from side to side rather quickly and suddenly became very dizzy. She has not taken anything for her symptoms. Related Data Previous Rx's Medication Instructions Recorded amoxicillin 875 mg-potassium 1 tab PO Q12H 10 days #20 tabs 03/27/24 clavulanate 125 mg tablet loratadine 10 mg tablet 10 mg PO DAILY #30 tabs 03/27/24 Allergies Allergy/AdvReac Type Severity Reaction Status Date / Time codeine Allergy Verified 03/27/24 17:06 acetaminophen [From Lortab] AdvReac Unknown Rash Verified 06/04/21 13:00 hydrocodone [From Lortab] AdvReac Unknown Rash Verified 06/04/21 13:00 Worker's Comp Is this a Worker's Comp case?: No [facility] Disclaimer: The information contained in this section may have been updated after the patient was seen, as this information can be updated by other users. Medical History (Updated 03/27/24 @ 17:38 by Jayde Diop APRN) Asthma Surgical History (Updated 03/27/24 @ 17:06 by Angela Hill RN) History of tubal ligation Social History Smoking Status: Current every day smoker tobacco type: cigarettes packs per day: 1 alcohol intake: never substance use type: denies use current occupational status: employed Travel in the last 8 weeks: None household members: children housing: house current occupation: [employer] Obtained: Yes All systems reviewed & no additional complaints except as documented Constitutional Constitutional: Reports system reviewed and no additional complaints, except as documented Eyes Eyes: Reports system reviewed and no additional complaints, except as documented ENT Ears, Nose, Mouth, and Throat: Reports system reviewed and no additional complaints, except as documented, Reports dizziness, Reports otalgia and Reports nasal discharge Cardiovascular Cardiovascular: Reports system reviewed and no additional complaints, except as documented Respiratory Respiratory: Reports system reviewed and no additional complaints, except as documented Gastrointestinal Gastrointestingal: Reports system reviewed and no additional complaints, except as documented Genitourinary Female Genitourinary: Reports system reviewed and no additional complaints, except as documented Musculoskeletal Musculoskeletal: Reports system reviewed and no additional complaints, except as documented Integumentary/Breasts Skin/Breast: Reports system reviewed and no additional complaints, except as documented Neurologic Neurologic: Reports system reviewed and no additional complaints, except as documented and Reports dizziness Endocrine Endocrine: Reports system reviewed and no additional complaints, except as documented Hematologic/Lymphatic Henatologic/Lymphatic: Reports system reviewed and no additional complaints, except as documented Allergic/Immunologic Allergic/Immunologic: Reports system reviewed and no additional complaints, except as documented Physical Exam General General appearance: alert and in no apparent distress Head Head exam: atraumatic and normocephalic Eye Eye exam: Present normal appearance ENT ENT exam: Present mucous membranes moist Expanded ENT Exam External ear exam: Present normal external inspection TM/Canal exam: Left TM: erythema, bulging and effusion Nasal speculum exam: Bilateral: other (clear drainage) Mouth exam: Present normal external inspection Teeth exam: Present normal inspection Throat exam: Present normal inspection Neck Neck exam: Present normal inspection; Absent lymphadenopathy Chest Chest inspection: Present normal inspection and symmetric chest wall rise Respiratory Respiratory exam: Present normal lung sounds bilaterally Cardiovascular Cardiovascular exam: Present regular rate, normal rhythm and normal heart sounds Abdominal Exam Abdominal exam: Present soft and normal bowel sounds Extremities Exam Extremities exam: Present normal inspection Back Exam Back exam: Present normal inspection Neurological Exam Neurological exam: Present alert, oriented X3 and normal gait Expanded Neurological Exam Speech: Present fluid speech Psychiatric Psychiatric exam: Present normal affect and normal mood Skin Skin exam: Present warm, dry and intact Lymphatic Lymphatic Findings: no adenopathy Medical Decision Making Suraj Inquiry Pt receiving controlled substance: No Suraj was queried for this patient: No Vital Signs: 03/27/24 16:55 Temperature 98.1 F Temperature Source Oral Pulse Rate [Left Brachial] 78 Respiratory Rate 21 Blood Pressure [Left Arm] 105/62 L Blood Pressure Mean [Left Arm] 76 Blood Pressure Source [Left Arm] Automatic Cuff Blood Pressure Position [Left Arm] Sitting 02 Sat by Pulse Oximetry 100 Oxygen Delivery Method Room Air
[2024-03-27 17:34] VITALS: BP 105/62; PULSE 78; RESP 21; TEMP 36.7; O2SAT 100
== END 2024-03-27 17:38 | disposition home or self-care (01) ==
PROVIDERS: Emergency Provider Nurse Practitioner Family; PCP Pediatrics
DX: H66.002 Acute suppurative otitis media without spontaneous rupture of ear drum, left ear (principal); R42 Dizziness and giddiness; J30.9 Allergic rhinitis, unspecified
CPT/HCPCS: 99212; 99214; G0463

== ENCOUNTER 2024-07-16 15:53 | Emergency (ER) | payer BC, SELFPAY ==
--- NOTE | 2024-07-16 15:52 | ECG_ITS ---
APPROVED REPORT Exam: Resting ECG HR:103 bpm ECG Measurements Heart Rate 103 AXES SD 150 P 70 QRSd 110 QRS 73 QT 344 T 61 QTc 404 Conclusion SINUS TACHYCARDIA ABNORMAL RHYTHM ECG UNCONFIRMED REPORT Electronically signed by : ARUN SADLER, 07/17/2024 06:28:38
[2024-07-16 15:54] VITALS: BP 114/69; PULSE 102; RESP 22; TEMP 36.9; O2SAT 98; BMI 39.1
--- NOTE | 2024-07-16 15:55 | [facility].EDCP ---
Discharge Plan Disposition Patient Disposition: Home, Self-Care Condition: Good Prescriptions Prescriptions: New pantoprazole [Protonix] 40 mg tablet,delayed release (DR/EC) 40 mg PO DAILY Qty: 30 0RF No Action amoxicillin-pot clavulanate 875-125 mg tablet 1 tab PO Q12H 10 Days Qty: 20 0RF loratadine 10 mg tablet 10 mg PO DAILY Qty: 30 1RF Referrals Follow up/Referrals: Navneet Cuenca [Primary Care Provider] - See instructions Velasquez Rodriguez II, MD [Staff Physician] - See instructions Activity Restrictions/Add. Instructions Additional Instructions/Restrictions: I have referred you to gastroenterology. Please call in the morning to make an appointment. I have also sent a prescription for Protonix to your pharmacy. Please take in the evenings before bed. Follow-up with your PCP for any worsening signs or symptoms or return to the ER as needed. Clinical Impressions Clinical Impression: Non-cardiac chest pain Dysphagia Qualifiers: Dysphagia type: unspecified Qualified Code(s): R13.10 - Dysphagia, unspecified Stand Alone Forms Stand Alone Forms: Work/School Release Instructions Patient Instructions: DI for Esophageal Dysphagia Print Language Print Language: Tajik Discharge ED Provider: Jhoan Stearns HPI <RADHA Fung - Last Filed: 07/16/24 22:31> General Chief Complaint: Chest Pain Stated Complaint: cp Time Seen by Provider: 07/16/24 15:55 History of Present Illness HPI narrative: Patient presents for evaluation of epigastric and chest pain. Patient states that she has had several day history of substernal/epigastric chest pain. She reports that it hurts to take a deep breath and it hurts more to swallow. She denies any shortness of breath fever chills hemoptysis hematochezia melena nausea vomiting diarrhea. Patient reports a bolus sensation occasionally when it hurts the most when swallowing. She has no difficulty swallowing water but solid foods are worse. She does have a history of GERD but is not on any PPIs currently. She has never had endoscopy. She does not take [id number] NSAIDs. She does not have a cardiac history. Related Data Previous Rx's ?Medication ?Instructions ?Recorded amoxicillin 875 mg-potassium 1 tab PO Q12H 10 days #20 tabs 03/27/24 clavulanate 125 mg tablet loratadine 10 mg tablet 10 mg PO DAILY #30 tabs 03/27/24 pantoprazole 40 mg tablet,delayed 40 mg PO DAILY #30 tabs 07/16/24 release (Protonix) Allergies Allergy/AdvReac Type Severity Reaction Status Date / Time codeine Allergy Intermediate itching Verified 07/16/24 16:12 hydrocodone [From Lortab] AdvReac Unknown Rash Verified 06/04/21 13:00 PFSH <RADHA Fung - Last Filed: 07/16/24 22:31> [facility] Disclaimer: The information contained in this section may have been updated after the patient was seen, as this information can be updated by other users. Medical History (Updated 07/16/24 @ 18:15 by RADHA Fung) Asthma Surgical History (Updated 03/27/24 @ 17:06 by Angela Hill RN) History of tubal ligation Social History Smoking Status: Current every day smoker tobacco type: cigarettes packs per day: 1 alcohol intake: never substance use type: denies use current occupational status: employed Travel in the last 8 weeks: None household members: children housing: house current occupation: [employer] Other Medical History Have you received the Flu Vaccine for this season: No Have you received the Pneumonia Vaccine: No <RADHA Fung - Last Filed: 07/16/24 22:31> ROS Obtained: Yes Systems reviewed as appropriate & no additional complaints except as documented Physical Exam <RADHA Fung - Last Filed: 07/16/24 22:31> General General appearance: alert and in no apparent distress Respiratory Respiratory exam: Present normal lung sounds bilaterally Cardiovascular Cardiovascular exam: Present regular rate Neurological Exam Neurological exam: Present alert and oriented X3 HEART Score <RADHA Fung - Last Filed: 07/16/24 22:31> HEART Score HEART Score assessment performed?: Yes History (anamnesis): Slightly suspicious ECG: Normal Age: <45 years Risk factors: 1-2 risk factors Troponin: </= normal limit HEART Score: 1 <Jhoan Stearns MD - Last Filed: 07/16/24 22:52> HEART Score HEART Score: 1 Critical Care <RADHA Fung - Last Filed: 07/16/24 22:31> Critical Care Time Critical Care Time: No Medical Decision Making <RADHA Fung - Last Filed: 07/16/24 22:31> Medical Records Medical records reviewed: Yes I reviewed the patient's medical records. Suraj Inquiry Pt receiving controlled substance: No Vital Signs Vital Signs: 07/16/24 15:54 07/16/24 16:09 07/16/24 16:30 Temperature 98.4 F Temperature Source Oral Pulse Rate 102 H 81 Pulse Rate [Right] 102 H Respiratory Rate 22 16 Blood Pressure 113/76 Blood Pressure [Right Arm] 114/69 Blood Pressure Mean [Right Arm] 84 Blood Pressure Source Blood Pressure Source [Right Arm] Automatic Cuff Blood Pressure Position 02 Sat by Pulse Oximetry 98 98 Oxygen Delivery Method Room Air Room Air 07/16/24 17:00 07/16/24 18:15 Temperature 98.0 F Temperature Source Oral Pulse Rate 83 70 Pulse Rate [Right] Respiratory Rate 19 16 Blood Pressure 105/68 L 108/64 L Blood Pressure [Right Arm] Blood Pressure Mean [Right Arm] Blood Pressure Source Automatic Cuff Blood Pressure Source [Right Arm] Blood Pressure Position Sitting 02 Sat by Pulse Oximetry 98 Oxygen Delivery Method Room Air Room Air Lab Data Lab results reviewed: Yes I reviewed the patient's lab results. Labs: Lab Results 07/16/24 15:55: WBC 13.5 H, RBC 4.28, Hgb 13.4, Hct 39.4, MCV 91.9, MCH 31.3 H, MCHC 34.1, RDW 13.3, Plt Count 259, MPV 8.9, Neut % (Auto) 59.7, Lymph % (Auto) 32.5, [place] % (Auto) 5.2, Eos % (Auto) 2.1, Baso % (Auto) 0.6, Neut # (Auto) 8.1 H, Lymph # (Auto) 4.4, [place] # (Auto) 0.7, Eos # (Auto) 0.3, Baso # (Auto) 0.1, Sodium 139, Potassium 3.7, Chloride 109 H, Carbon Dioxide 25, Anion Gap 8.7, BUN 14, Creatinine 0.70, Estimated Creat Clear 203, Estimated GFR 96, Est GFR ( Amer) 116, Glucose 86, Calcium 9.0, Total Bilirubin 0.5, AST 24, ALT 20, Alkaline Phosphatase 45, Troponin I < 0.01, Total Protein 6.7, Albumin 4.1, Globulin 2.6, Albumin/Globulin Ratio 1.6, Lipase 87, Serum HCG, Qual Negative, HIV 1&2 Antibody Rapid Nonreactive 07/16/24 15:55 07/16/24 15:55 Response Orders (Tests/Meds): ED MEDICATIONS Discontinued Medications Generic Name Dose Route Start Last Admin Trade Name Freq PRN Reason Stop Dose Admin Acetaminophen 1,000 mg 07/16/24 16:15 07/16/24 16:25 Acetaminophen 500mg Tab PO 07/16/24 16:16 1,000 mg ONCE ONE Administration Belladonna Alkaloids 60 ml 07/16/24 16:15 07/16/24 16:24 Belladonna Alkaloids 60 Ml Ml PO 07/16/24 16:16 60 ml ONCE ONE Administration Lactated Ringer's 1,000 mls @ 999 mls/hr 07/16/24 16:15 07/16/24 16:25 Lactated Ringer's 1000 Ml Bag IV 07/16/24 17:15 999 mls/hr .Q1H1M ONE Administration Iopamidol 75 ml 07/16/24 17:24 07/16/24 17:39 Iopamidol-370 (76%);100ml Bottle IV 07/16/24 17:25 75 ml ONCE ONE Administration Ketorolac Tromethamine 15 mg 07/16/24 16:15 07/16/24 16:25 Ketorolac 30mg/Ml Vial IV 07/16/24 16:16 15 mg ONCE ONE Administration Sodium Chloride 10 ml 07/16/24 17:24 07/16/24 17:39 Sodium Chloride 0.9% 10ml Syr (Rad Only) IV 07/16/24 17:25 10 ml ONCE ONE Administration ORDERS Category Date Time Status CT abdomen pelvis w con Stat Cat Scan 07/16/24 16:[address] angio chest PE protocol Stat Cat Scan 07/16/24 16:14 Completed CXR --portable [XR chest portable] Stat Exams 07/16/24 16:13 Completed Complete Blood Count Auto Diff Stat Lab 07/16/24 15:55 Completed Comprehensive Metabolic Panel Stat Lab 07/16/24 15:55 Completed HCG Qualitative, Serum Stat Lab 07/16/24 15:55 Completed HIV (1&2) Antibody Rapid Stat Lab 07/16/24 15:55 Completed Hep C Ab with Reflex to RNA Stat Lab 07/16/24 15:55 Received Lipase Stat Lab 07/16/24 15:55 Completed Troponin I Stat Lab 07/16/24 15:55 Completed MDM Narrative Medical Decision Narrative: In summary patient is a 34-year-old female who presents to the emergency department for evaluation of chest pain/epigastric pain. Patient is hemodynamically stable but slightly tachycardic on arrival to 100 to upon arrival, afebrile. Exam is remarkable for nonreproducible chest pain on palpation but she does have tenderness in the epigastrium. Breath sounds heart sounds are both normal.. Differential diagnosis includes ACS versus ulcer versus esophageal spasm versus stricture etc. Initial workup will be conducted with hematologic labs twelve-lead EKG CT scan of the chest and abdomen. Initial interventions include Toradol Tylenol GI cocktail. Initial workup reviewed by me shows that her hematologic labs are nonactionable troponins undetectable and my informal interpretation of her imaging shows no acute processes prior to radiology read. Upon repeat evaluation patient had complete resolution of her symptoms especially after GI cocktail. Given this we have essentially ruled out any serious or life-threatening problems and patient is appropriate for discharge with a prescription for proton pump inhibitor, referral to GI, insert follow-up precautions <Jhoan Stearns MD - Last Filed: 07/16/24 22:52> Vital Signs Vital Signs: 07/16/24 15:54 07/16/24 16:09 07/16/24 16:30 Temperature 98.4 F Temperature Source Oral Pulse Rate 102 H 81 Pulse Rate [Right] 102 H Respiratory Rate 22 16 Blood Pressure 113/76 Blood Pressure [Right Arm] 114/69 Blood Pressure Mean [Right Arm] 84 Blood Pressure Source Blood Pressure Source [Right Arm] Automatic Cuff Blood Pressure Position 02 Sat by Pulse Oximetry 98 98 Oxygen Delivery Method Room Air Room Air 07/16/24 17:00 07/16/24 18:15 Temperature 98.0 F Temperature Source Oral Pulse Rate 83 70 Pulse Rate [Right] Respiratory Rate 19 16 Blood Pressure 105/68 L 108/64 L Blood Pressure [Right Arm] Blood Pressure Mean [Right Arm] Blood Pressure Source Automatic Cuff Blood Pressure Source [Right Arm] Blood Pressure Position Sitting 02 Sat by Pulse Oximetry 98 Oxygen Delivery Method Room Air Room Air Lab Data Labs: Lab Results 07/16/24 15:55: WBC 13.5 H, RBC 4.28, Hgb 13.4, Hct 39.4, MCV 91.9, MCH 31.3 H, MCHC 34.1, RDW 13.3, Plt Count 259, MPV 8.9, Neut % (Auto) 59.7, Lymph % (Auto) 32.5, [place] % (Auto) 5.2, Eos % (Auto) 2.1, Baso % (Auto) 0.6, Neut # (Auto) 8.1 H, Lymph # (Auto) 4.4, [place] # (Auto) 0.7, Eos # (Auto) 0.3, Baso # (Auto) 0.1, Sodium 139, Potassium 3.7, Chloride 109 H, Carbon Dioxide 25, Anion Gap 8.7, BUN 14, Creatinine 0.70, Estimated Creat Clear 203, Estimated GFR 96, Est GFR ( Amer) 116, Glucose 86, Calcium 9.0, Total Bilirubin 0.5, AST 24, ALT 20, Alkaline Phosphatase 45, Troponin I < 0.01, Total Protein 6.7, Albumin 4.1, Globulin 2.6, Albumin/Globulin Ratio 1.6, Lipase 87, Serum HCG, Qual Negative, HIV 1&2 Antibody Rapid Nonreactive Response Orders (Tests/Meds): ED MEDICATIONS Discontinued Medications Generic Name Dose Route Start Last Admin Trade Name Freq PRN Reason Stop Dose Admin Acetaminophen 1,000 mg 07/16/24 16:15 07/16/24 16:25 Acetaminophen 500mg Tab PO 07/16/24 16:16 1,000 mg ONCE ONE Administration Belladonna Alkaloids 60 ml 07/16/24 16:15 07/16/24 16:24 Belladonna Alkaloids 60 Ml Ml PO 07/16/24 16:16 60 ml ONCE ONE Administration Lactated Ringer's 1,000 mls @ 999 mls/hr 07/16/24 16:15 07/16/24 16:25 Lactated Ringer's 1000 Ml Bag IV 07/16/24 17:15 999 mls/hr .Q1H1M ONE Administration Iopamidol 75 ml 07/16/24 17:24 07/16/24 17:39 Iopamidol-370 (76%);100ml Bottle IV 07/16/24 17:25 75 ml ONCE ONE Administration Ketorolac Tromethamine 15 mg 07/16/24 16:15 07/16/24 16:25 Ketorolac 30mg/Ml Vial IV 07/16/24 16:16 15 mg ONCE ONE Administration Sodium Chloride 10 ml 07/16/24 17:24 07/16/24 17:39 Sodium Chloride 0.9% 10ml Syr (Rad Only) IV 07/16/24 17:25 10 ml ONCE ONE Administration ORDERS Category Date Time Status CT abdomen pelvis w con Stat Cat Scan 07/16/24 16:[address] angio chest PE protocol Stat Cat Scan 07/16/24 16:14 Completed CXR --portable [XR chest portable] Stat Exams 07/16/24 16:13 Completed Complete Blood Count Auto Diff Stat Lab 07/16/24 15:55 Completed Comprehensive Metabolic Panel Stat Lab 07/16/24 15:55 Completed HCG Qualitative, Serum Stat Lab 07/16/24 15:55 Completed HIV (1&2) Antibody Rapid Stat Lab 07/16/24 15:55 Completed Hep C Ab with Reflex to RNA Stat Lab 07/16/24 15:55 Received Lipase Stat Lab 07/16/24 15:55 Completed Troponin I Stat Lab 07/16/24 15:55 Completed ECG Data Tracing #1: Attestation: I reviewed this ECG and interpreted as documented below: (Sinus tachycardia [address] or T wave changes concerning for acute ischemia. ME 150, QRS 110, QTc 404. Normal axis.) MDM Narrative Medical Decision Narrative: In summary patient is a 34-year-old female who presents to the emergency department for evaluation of chest pain/epigastric pain. Patient is hemodynamically stable but slightly tachycardic on arrival to 100 to upon arrival, afebrile. Exam is remarkable for nonreproducible chest pain on palpation but she does have tenderness in the epigastrium. Breath sounds heart sounds are both normal.. Differential diagnosis includes ACS versus ulcer versus esophageal spasm versus stricture etc. Initial workup will be conducted with hematologic labs twelve-lead EKG CT scan of the chest and abdomen. Initial interventions include Toradol Tylenol GI cocktail. Initial workup reviewed by me shows that her hematologic labs are nonactionable troponins undetectable and my informal interpretation of her imaging shows no acute processes prior to radiology read. Upon repeat evaluation patient had complete resolution of her symptoms especially after GI cocktail. Given this we have essentially ruled out any serious or life-threatening problems and patient is appropriate for discharge with a prescription for proton pump inhibitor, referral to GI, insert follow-up precautions I was consulted by the JUANIS, and we discussed the complexity of the problems being addressed. I approved the treatment and management plan for this patient's care in the Emergency Department, thus performing a substantive portion of the medical decision making. Jhoan Stearns MD
[2024-07-16 16:09] VITALS: PULSE 102
--- NOTE | 2024-07-16 16:13 | XR_ITS ---
PROCEDURE INFORMATION: Exam: XR Chest Exam date and time: 07/16/2024 5:10 PM Age: 34 years old Clinical indication: Sternal or substernal pain; Additional info: Chest apin TECHNIQUE: Imaging protocol: Radiologic exam of the chest. Views: 1 view. COMPARISON: No relevant prior studies available. FINDINGS: Lungs: Unremarkable. No consolidation. Pleural spaces: Unremarkable. No pleural effusion. No pneumothorax. Heart/Mediastinum: Unremarkable. No cardiomegaly. Bones/joints: Unremarkable. IMPRESSION: No acute findings.
--- NOTE | 2024-07-16 16:14 | CT_ITS ---
PROCEDURE INFORMATION: Exam: CTA Chest With Contrast Exam date and time: 07/16/2024 5:38 PM Age: 34 years old Clinical indication: Pain; Chest pressure; Additional info: Substernal chest and epigastric abdominal pain TECHNIQUE: Imaging protocol: Computed tomographic angiography of the chest with contrast. Exam focused on the arteries. 3D rendering (Not supervised by radiologist): MIP and/or 3D reconstructed images were created by the technologist. Radiation optimization: All CT scans at this facility use at least one of these dose optimization techniques: automated exposure control; mA and/or kV adjustment per patient size (includes targeted exams where dose is matched to clinical indication); or iterative reconstruction. Contrast material: ISOVUE; Contrast volume: 75 ml; Contrast route: INTRAVENOUS (IV); COMPARISON: CR XR CHEST PORTABLE 07/16/2024 5:10 PM FINDINGS: Pulmonary arteries: Normal. No pulmonary emboli. Aorta: Unremarkable. No aortic aneurysm. No aortic dissection. Lungs: Unremarkable. No consolidation. No masses. Pleural spaces: Unremarkable. No pneumothorax. No pleural effusion. Heart: Unremarkable. No cardiomegaly. No pericardial effusion. Lymph nodes: Unremarkable. No enlarged lymph nodes. Bones/joints: Unremarkable. No acute fracture. Soft tissues: Unremarkable. IMPRESSION: No acute findings.
--- NOTE | 2024-07-16 16:14 | PC.NURSE ---
Toni Gamble PA-C at bedside
--- NOTE | 2024-07-16 16:15 | CT_ITS ---
PROCEDURE INFORMATION: Exam: CT Abdomen And Pelvis With Contrast Exam date and time: 07/16/2024 5:38 PM Age: 34 years old Clinical indication: Abdominal pain; Additional info: Substernal chest and epigastric abdominal pain TECHNIQUE: Imaging protocol: Computed tomography of the abdomen and pelvis with contrast. Radiation optimization: All CT scans at this facility use at least one of these dose optimization techniques: automated exposure control; mA and/or kV adjustment per patient size (includes targeted exams where dose is matched to clinical indication); or iterative reconstruction. Contrast material: ISOVUE; Contrast volume: 75 ml; Contrast route: IV; COMPARISON: CT ANGIO CHEST PE PROTOCOL 07/16/2024 5:38 PM FINDINGS: Liver: Hepatomegaly 20 cm Gallbladder and biliary ducts: Normal. No calcified stones. No ductal dilation. Pancreas: Normal. No ductal dilation. Spleen: Normal. No splenomegaly. Adrenal glands: Normal. No mass. Kidneys and ureters: Normal. No hydronephrosis. Stomach and bowel: Unremarkable. No obstruction. No mucosal thickening. Appendix: Normal appendix Intraperitoneal space: Unremarkable. No free air. No significant fluid collection. Vasculature: Unremarkable. No abdominal aortic aneurysm. Lymph nodes: Pathologic node in the right groin 22 x 12 mm. Urinary bladder: Unremarkable as visualized. Reproductive: Unremarkable as visualized. Bones/joints: Unremarkable. No acute fracture. Soft tissues: Umbilical hernia contains fat IMPRESSION: Pathologic node in the right groin 22 x 12 mm.
[2024-07-16 16:23] LABS: Basophils # 0.1 K/mm3 (0-0.2); Basophils % 0.6 % (0.1-2.0); Eosinophils # 0.3 K/mm3 (0.0-0.4); Eosinophils % 2.1 % (0.1-12.0); Hematocrit 39.4 % (37.0-47.0); Hemoglobin 13.4 g/dL (12.2-16.2); Lymphocytes # 4.4 K/mm3 (0.7-4.5); Lymphocytes % 32.5 % (10-50); Mean Corpuscular HGB Conc 34.1 g/dL (31.8-35.4); Mean Corpuscular Hemoglobin 31.3 pg (27.0-31.2); Mean Corpuscular Volume 91.9 fl (81-99); Mean Platelet Volume 8.9 fl (7.4-10.4); Monocytes # 0.7 K/mm3 (0.1-1.0); Monocytes % 5.2 % (1.7-9.3); Neutrophils # 8.1 K/mm3 (1.8-7.8); Neutrophils % 59.7 % (37.0-80.0); Platelet Count 259 K/mm3 (142-424); Red Blood Count 4.28 M/mm3 (4.20-5.40); Red Cell Distribution Width 13.3 % (11.5-17.5); White Blood Count 13.5 K/mm3 (4.8-10.8)
[2024-07-16] MEDS: BELLADONNA ALKALOIDS 60 ML ML PO (16:24)
[2024-07-16] MEDS: LACTATED RINGERS 1000ML 1,000 ML 999 ML IV (16:25)
[2024-07-16] MEDS: KETOROLAC 30MG/ML VIAL 15 MG IV (16:25)
[2024-07-16] MEDS: ACETAMINOPHEN 500MG TAB 1000 MG PO (16:25)
[2024-07-16 16:30] VITALS: BP 113/76; PULSE 81; RESP 16; O2SAT 98
[2024-07-16 17:00] VITALS: BP 105/68; PULSE 83; RESP 19; O2SAT 98
[2024-07-16 17:07] LABS: HCG Qualitative, Serum Negative (Negative)
[2024-07-16 17:12] LABS: Lipase 87 U/L (23-300)
--- NOTE | 2024-07-16 17:17 | PC.NURSE ---
pt to ct
[2024-07-16] MEDS: SODIUM CHLORIDE 0.9% 10ML SYR (RAD ONLY) 10 ML IV (17:39)
[2024-07-16] MEDS: IOPAMIDOL-370 (76%);100ML BOTTLE 75 ML IV (17:39)
[2024-07-16 18:15] VITALS: BP 108/64; PULSE 70; RESP 16; TEMP 36.7; O2SAT 100
[2024-07-16 19:08] LABS: HIV (1&2) Antibody Rapid NONREACTIVE (NONREACTIVE)
[2024-07-16 21:24] LABS: Alanine Aminotransferase 20 U/L (12-78); Albumin Level 4.1 g/dl (3.5-5.0); Albumin/Globulin Ratio 1.6 (1.1-1.8); Alkaline Phosphatase 45 U/L (38-126); Anion Gap 8.7 mEq/L (5-15); Aspartate Amino Transferase 24 U/L (14-36); Bilirubin,Total 0.5 mg/dl (0.2-1.3); Blood Urea Nitrogen 14 mg/dl (7-17); Carbon Dioxide 25 mmol/L (22.0-30.0); Chloride 109 mmol/L (98-107); Creatinine Clearance Estimated 203 mL/min (50-200); Estimated Glomerular Filt Rate 96 ml/min (>60); GFR (African American) 116 ML/MIN (>60); Globulin 2.6 g/dL (1.3-3.2); Glucose 86 mg/dl (74-100); Potassium 3.7 mmoL/L (3.5-5.1); Sodium 139 mmol/L (136-145); Total Protein,Serum 6.7 g/dl (6.3-8.2)
[2024-07-16 21:51] LABS: Troponin I < 0.01 ng/ml (0.00-0.034)
[2024-07-17 08:59] LABS: HCV Ab Non Reactive (Non Reactive)
== END 2024-07-16 18:18 | disposition home or self-care (01) ==
PROVIDERS: Physician Assistant; Emergency Provider Emergency Medicine; PCP Pediatrics
DX: R07.89 Other chest pain (principal); R13.10 Dysphagia, unspecified; R07.9 Chest pain, unspecified; R10.9 Unspecified abdominal pain; R00.0 Tachycardia, unspecified
CPT/HCPCS: 71045; 71275; 74177; 80053; 83690; 84484; 84703; 85025; 86803; 87389; 93005; 96361; 96374; 99285; J1885; J7120; Q9967

== ENCOUNTER 2025-07-31 12:33 | Emergency (ER) | payer OTHER, SELFPAY ==
[2025-07-31 13:02] VITALS: BP 128/86; PULSE 91; RESP 18; TEMP 36.7; O2SAT 99; BMI 43.8
--- NOTE | 2025-07-31 13:09 | ED_ITS ---
<Statement entered by Riky Jenkins MD - 07/31/25 15:49> I consulted the JUANIS, and we discussed the complexity of the problems being addressed. I approved the treatment and management plan for this patient's care in the emergency department, thus performing a substantial portion of the medical decision making. Charly Jenkins MD Discharge Plan Disposition Patient Disposition: Home, Self-Care Condition: Good Prescriptions Prescriptions: No Action amoxicillin-pot clavulanate 875-125 mg tablet 1 tab PO Q12H 10 Days Qty: 20 0RF loratadine 10 mg tablet 10 mg PO DAILY Qty: 30 1RF pantoprazole [Protonix] 40 mg tablet,delayed release (DR/EC) 40 mg PO DAILY Qty: 30 0RF Referrals Follow up/Referrals: Navneet Cuenca [Primary Care Provider, Medical] - See instructions Activity Restrictions/Add. Instructions Additional Instructions/Restrictions: Please return to the emergency department with any worsening signs or symptoms. I recommend rest ice ibuprofen Tylenol as needed for symptomatic relief. Please follow-up with your PCP in the upcoming days/weeks. Clinical Impressions Clinical Impression: Crushing injury of right hand Instructions Patient Instructions: DI for Wrist Strain Print Language Print Language: Bulgarian Discharge ED Provider: Riky Jenkins General Adult HPI General Chief complaint: Extremity Injury, Upper Stated complaint: [id number] pain and swelling pinky and ring finger Time Seen by Provider: 07/31/25 13:09 Mode of Arrival: Ambulatory Source of Information: Patient Description of Symptoms (Recalled from ER Triage Doc. by RN): curtis presents from work after smaching her right ring and pinky finger in between two very heavy pieces of medal. 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 she states her ring finger is tingling and that theres something pinching. History of Present Illness HPI narrative: 35-year-old female presents to the emergency department for a injury that occurred at work around 9 AM today, patient states that she was pulling a 60 pound piece of metal , when she states that her ring finger and pinky finger and right hand got caught in it , patient denies any prolonged crush injury, patie nt has no other acute signs or symptoms, no other injuries, denies any numbness or tingling, denies any radicular type symptomatology, patient has taken some Motrin today around 10 AM with some relief to her symptomatology, patient has other past medical history consistent with GERD, otherwise no real remarkable past medical history takes no medications daily at home. Initial triage vitals grossly unremarkable. Please note that above description of symptoms, in this electronic medical record under categorization of recalled from ER triage doctor by RN are reflective of an initial nursing assessment, however, is not reflective of my full history and physical exam that was personally taken and clarified. Consequentially, this preceding description of symptoms, which may include the patient's categorized chief complaint in the EMR, do not reflect my personal clinical impression, and the ultimate description of history of present illness and patient stated complaints should be deferred to this section of the note. Unless stated otherwise or congruent with this section of the note, additional signs, symptoms, or incongruence should be interpreted as inaccurate with my clinical impression. Onset (ago): hour(s) Related Data Previous Rx's ?Medication ?Instructions ?Recorded amoxicillin 875 mg-potassium 1 tab PO Q12H 10 days #20 tabs 03/27/24 clavulanate 125 mg tablet loratadine 10 mg tablet 10 mg PO DAILY #30 tabs 0711/19 pantoprazole 40 mg tablet,delayed 40 mg PO DAILY #30 t abs 07/16/24 release (Protonix) Allergies Allergy/AdvReac Type Severity Reaction Status Date / Time codeine Allergy Intermediate itching Verified 07/16/24 16:12 hydrocodone (From Lortab) AdvReac Unknown Rash Verified 06/04/21 13:00 PFSH PFS Disclaimer: The information contained in this section may have been updated after the patient was seen, as this information can be updated by other users. Medical History (Updated 07/31/25 @ 14:25 by RADHA Pat) Asthma Surgical History (Updated 03/27/24 @ 17:06 by Angela Hill RN) History of tubal ligation Social History Smoking Status: Light tobacco smoker tobacco type: cigarettes packs per day: 1 alcohol intake: never substance use type: denies use current occupational status: employed Travel in the last 8 weeks?: None household members: children housing: house current occupation: [employer] Have you lived/traveled outside [place] in past 30 days?: No Contact w/someone who lives/traveled outside US past 30 days?: No Exposure to someone with infectious disease in past 14 days?: No Do you have a fever (greater than 100.4 F or 38 C)?: No Have you tested positive for COVID-19?: No Exposed to someone with COVID-19 in past 14 days?: No Do you have a sore throat?: No Do you have a cough?: No Do you have any weakness?: No Do you have any diarrhea?: No Are you experiencing any unusual bleeding?: No Do you have any muscle aches/pain?: No Do you have any abdominal pain?: No Are you experiencing loss of taste or smell?: No Other Medical History Have you received the Flu Vaccine for this season: No Have you received the Pneumonia Vaccine: No ROS Obtained: Yes All systems reviewed & no additional complaints except as documented Physical Exam General General appearance: alert and in no apparent distress Head Head exam: atraumatic and normocephalic Eye Eye exam: Present PERRL and EOMI ENT ENT exam: Present mucous membranes moist Neck Neck exam: Present normal inspection Chest Chest inspection: Present normal inspection and symmetric chest wall rise Respiratory Respiratory exam: Present normal lung sounds bilaterally; Absent respiratory distress Cardiovascular Cardiovascular exam: Present regular rate and normal rhythm Abdominal Exam Abdominal exam: Present soft; Absent tenderness Extremities Exam Extremities exam: Present normal inspection, full ROM, tenderness and other (No obvious open traumatic fracture or injury, good finger opposition, extremities to command, some pain to palpation over the dorsal and volar aspect of the fourth digit and fifth digit, good strength, otherwise neurovascular intact.) Neurological Exam Neurological exam: Present alert and oriented X3 Psychiatric Psychiatric exam: Present normal affect Skin Skin exam: Present warm and dry Medical Decision Making Medical Records Medical records reviewed: Yes I reviewed the patient's medical records. Screening: Per USPSTF and CDC recommendations, given the prevalence of disease in our region, it is our hospital?s policy to screen for HIV and viral Hepatitis for all patients aged 18 and over and those with ongoing risk factors. Suraj Inquiry Pt receiving controlled substance: No Suraj was queried for this patient: No Vital Signs: 07/31/25 13:02 07/31/25 14:15 Temperature 98.1 F 98.2 F Temperature Source Oral Oral Pulse Rate 74 Pulse Rate [Right Radial] 91 H Respiratory Rate 18 18 Blood Pressure 116/70 Blood Pressure [Right Arm] 128/86 Blood Pressure Mean [Right Arm] 100 Blood Pressure Source Automatic Cuff Blood Pressure Source [Right Arm] Automatic Cuff Blood Pressure Position Sitting Blood Pressure Position [Right Arm] Sitting 02 Sat by Pulse Oximetry 99 100 Oxygen Delivery Method Room Air Room Air Orders (Tests/Meds): ED MEDICATIONS Discontinued Medications Generic Name Dose Route Start Last Admin Trade Name Ismael PRN Reason Stop Dose Admin Acetaminophen 1,000 mg 07/31/25 13:13 07/31/25 13:32 Acetaminophen 500mg Tab PO 07/31/25 13:14 1,000 mg ONCE ONE Administration ORDERS Category Date Time Status XR hand RT min 3V Stat Exams 07/31/25 13:12 Completed XR wrist RT min 3V Stat Exams 07/31/25 13:13 Completed Medical Decision Narrative: 35-year-old female presents the emergency department for right hand crush injury, see HPI for detailed past medical history, differential diagnose include but not limited to, finger sprain/strain, hand sprain/strain, tuft fracture, hand fracture, wrist fracture, wrist pain/strain among others. Will give the patient 1000 milligrams of Tylenol p.o. for symptomatic relief, we will also obtain x-ray of the hand and wrist on the right for further evaluation/characterization. I reviewed the patient's right wrist x-ray and right hand x-ray along the corresponding radiologic report, no acute osseous abnormality of the right hand or wrist I discussed the results with the patient at the bedside patient agreed with current discharge plan/treatment plan, recommend ibuprofen Tylenol as needed for symptomatic relief, rest and ice. Patient was given strict return precautions. Follow-up PCP in the upcoming days/weeks. Patient voiced understanding and in agreement with the current discharge plan/treatment plan. Critical Care Critical Care Time Critical Care Time: No
--- NOTE | 2025-07-31 13:12 | XR_ITS ---
FINAL REPORT CLINICAL HISTORY: Fourth digit crush injury FINDINGS: AP, lateral and oblique views of the right hand were obtained. There is no prior exam for comparison. There is no acute fracture or dislocation. The joint spaces are preserved. The soft tissues are normal. IMPRESSION: No acute osseous abnormality of the right hand. Reviewed, Interpreted and Dictated by Peggy French MD Transcribed by Angelica Kulkarni Authenticated and [facility]
--- NOTE | 2025-07-31 13:13 | XR_ITS ---
FINAL REPORT CLINICAL HISTORY: Right hand/wrist injury FINDINGS: AP, oblique, and lateral views of the right wrist were obtained. There is no prior exam for comparison. There is no acute fracture or dislocation. The joint spaces are preserved. The soft tissues are normal. IMPRESSION: No acute osseous abnormality of the right wrist. Reviewed, Interpreted and Dictated by Peggy French MD Transcribed by Angelica Kulkarni Authenticated and [facility]
--- OUTSIDE RECORDS SUMMARY | 2025-07-31 13:25 | XMS_ITS | Clinical Summary ---
Author Organization [facility] are Address [address] [place] [address] Phone Care Team Providers Care Face Cleaner Name Role Phone Unavailable Unavailable Conditions or Problems No information available. Medications No information available. Medications Administered No information available. Allergies, Adverse Reactions, Alerts No information available. Results No information available. Plan of Care No information available. Procedures No information available. Vital Signs No information available. Immunizations No information available. Advance Directives No information available.
[2025-07-31] MEDS: ACETAMINOPHEN 500MG TAB 1000 MG PO (13:32)
[2025-07-31 14:15] VITALS: BP 116/70; PULSE 74; RESP 18; TEMP 36.8; O2SAT 100
[2025-07-31 14:37] VITALS: BP 116/70; PULSE 74; RESP 18; TEMP 36.8; O2SAT 100
== END 2025-07-31 14:37 | disposition home or self-care (01) ==
PROVIDERS: Emergency Provider Student in an Organized Health Care Education/Training Program; PCP Pediatrics
DX: S67.21XA Crushing injury of right hand, initial encounter (principal); W23.0XXA Caught, crushed, jammed, or pinched between moving objects, initial encounter
CPT/HCPCS: 73110; 73130; 99283; 99284